=== PATIENT | male | born 1985 | race Hispanic/Latino ===

== ENCOUNTER 2018-11-04 05:51 | Emergency (ER) | payer BC, OTHER ==
[2018-11-04 06:10] VITALS: BP 129/91; TEMP 98.2; O2SAT 99
--- NOTE | 2018-11-04 06:24 | ED.PDOC ---
History of Present Illness - General Chief Complaint: General Stated Complaint: joint pain Time Seen by Provider: 11/04/18 06:20 Source: patient Exam Limitations: no limitations - History of Present Illness Initial Comments: Quinn Page 33 y/o male came to ER with intermittent multiple joint pains for the last one month.He was seen by in [place] initially diagnosed with plantar fasciitis,then gout and low iron.He is presently on NSAIDS and iron tablets.Stated slightly relived by Indomethacin but the last 3 days pain not getting better.Denies fever,night sweats,history of STI,weight loss.Denies chronic medical problem.Also sometimes his knees swells up but spontaneously go away. Timing/Duration: getting worse, intermittent, other - one month Severity: moderate Improving Factors: rest Worsening Factors: movement Associated Symptoms: denies symptoms Allergies/Adverse Reactions: Allergies NO KNOWN ALLERGY Allergy (Verified 03/23/15 08:50) Home Medications: Ambulatory Orders Ferrous [id number] Complex- [Hemocyte Plus 106-1 mg] 11/04/18 Gabapentin 11/04/18 Methylprednisolone [Medrol Dose Luis] 4 mg PO DAILY 6 Days #21 tab 11/04/18 Tramadol HCl 50 mg PO TID PRN #14 tab 11/04/18 Vitamin D 11/04/18 Review of Systems - Review of Systems Constitutional: States: no symptoms reported EENTM: States: no symptoms reported Respiratory: States: no symptoms reported Cardiology: States: no symptoms reported Gastrointestinal/Abdominal: States: no symptoms reported Musculoskeletal: States: see HPI, joint pain Skin: States: no symptoms reported Neurological: States: no symptoms reported Past Medical History (General) - Patient Medical History Hx Stroke: No Hx Asthma: No Hx Congestive Heart Failure: No Hx Diabetes: No Surgical History: no surgical history - Vaccination History Hx Tetanus, Diphtheria Vaccination: Yes - 2012 Hx Influenza Vaccination: No Hx Pneumococcal Vaccination: No - Social History Hx Tobacco Use: No Family Medical History - Family History Father Family History: No Known Living Status: Still Living Hx Family Diabetes: Yes - parents Physical Exam - Physical Exam General Appearance: Alert, Comfortable, No apparent distress Eye Exam: bilateral normal Ears, Nose, Throat: hearing grossly normal, normal ENT inspection, normal pharynx Neck: non-tender, full range of motion, supple Respiratory: chest non-tender, lungs clear, normal breath sounds Cardiovascular/Chest: normal peripheral pulses, regular rate, rhythm, no murmur Peripheral Pulses: radial,right: 2+, radial,left: 2+ Gastrointestinal/Abdominal: normal bowel sounds, non tender, soft Back Exam: no CVA tenderness, no vertebral tenderness Extremity: no pedal edema, no calf tenderness, other - ROM slightly painful shoulders,elbow,wrist ,knees,ankles Progress - Progress Progress: 11/04/18 06:33 Vital Signs - 8 hr 11/04/18 06:07 Temperature 98.2 F Pulse Rate [ 113 H Right] Respiratory 18 Rate Blood Pressure 129/91 [Left Arm] O2 Sat by Pulse 99 Oximetry Departure - Departure Clinical Impression: Pain in joint, multiple sites, Diffuse arthralgia Time of Disposition: 06:34 Disposition: Discharge to Home or Self Care Condition: Fair Departure Forms: ED Discharge - Pt. Copy, Patient Portal Self Enrollment Instructions: Rheumatoid Arthritis, Rheumatoid Arthritis (DC), Lupus (DC), Lupus Referrals: MIKE GUZMAN [Primary Care Provider] - 1-2 Weeks Prescriptions: Methylprednisolone [Medrol Dose Luis] 4 mg PO DAILY 6 Days #21 tab Tramadol HCl 50 mg PO TID PRN #14 tab PRN Reason: Pain Home Medications: Ambulatory Orders Ferrous [id number] Complex- [Hemocyte Plus 106-1 mg] 11/04/18 Gabapentin 11/04/18 Methylprednisolone [Medrol Dose Luis] 4 mg PO DAILY 6 Days #21 tab 11/04/18 Tramadol HCl 50 mg PO TID PRN #14 tab 11/04/18 Vitamin D 11/04/18 Additional Instructions: Follow up with primary Md 10 Nov 2018 for referral TO CORE MANAGER;Return to Emergency room as needed
[2018-11-04] MEDS: HYDROcodone 10MG/APAP 325MG 1 EA TAB PO ONE (06:26)
[2018-11-04] MEDS: DEXAMETHASONE INJ 4 MG/ML VIAL IM ONE (06:26)
[2018-11-04] MEDS: KETOROLAC TROMETHAMINE INJ 30 MG/ML VIAL IM ONE (06:26)
[2018-11-04] MEDS: predniSONE 20 MG TAB PO ONE (06:26)
== END 2018-11-04 06:49 | disposition home or self-care (01) ==
LOC: ER 05:51
DX: M25.511 Pain in right shoulder (principal); M25.512 Pain in left shoulder; M25.561 Pain in right knee; M25.562 Pain in left knee; M25.571 Pain in right ankle and joints of right foot; M25.572 Pain in left ankle and joints of left foot; M25.529 Pain in unspecified elbow; M25.539 Pain in unspecified wrist; M10.9 Gout, unspecified; M72.2 Plantar fascial fibromatosis; Z79.899 Other long term (current) drug therapy
CPT/HCPCS: J1100; J1885; J7512